=== PATIENT | male | born 1985 | race Two or more races ===

== ENCOUNTER 2017-07-05 00:53 | Emergency (ER) | payer SELFPAY ==
[2017-07-05 04:12] LABS: ABSOLUTE EOSINOPHILS # (AUTO) 0.1 10^3/uL (0.0-0.6); ABSOLUTE LYMPHOCYTES (AUTO) 1.6 10^3/uL (0.5-4.7); ABSOLUTE MONOCYTES (AUTO) 0.5 10^3/uL (0.1-1.4); ABSOLUTE NEUT (AUTO) 3.4 10^3/uL (1.7-8.2); BASOPHILS % (AUTO) 0.5 % (0-2); EOSINOPHILS % (AUTO) 0.9 % (0-6); HEMATOCRIT 42.4 % (37.9-51.0); LYMPHOCYTES % (AUTO) 29.1 % (13-45); MEAN CORPUSCULAR HEMOGLOBIN 29.9 pg (27.0-33.4); MEAN CORPUSCULAR HGB CONC 35.3 g/dL (32.0-36.0); MEAN CORPUSCULAR VOLUME 85 fl (80-97); MONOCYTES % (AUTO) 8.9 % (3-13); PLATELET COUNT 295 10^3/uL (150-450); RED CELL DISTRIBUTION WIDTH 12.9 % (11.5-14.0); SEGMENTED NEUTROPHILS % (AUTO) 60.6 % (42-78); TOTAL CELLS COUNTED % (AUTO) 100 %; WHITE BLOOD COUNT 5.7 10^3/uL (4.0-10.5)
[2017-07-05] MEDS ORDERED: NORMAL SALINE 1000 ML 1,000 ML IV ONE (04:15)
--- NOTE | 2017-07-05 04:16 | ER Document Report ---
ED General - General Chief Complaint: Chest Pain Stated Complaint: CHEST PAIN Time Seen by Provider: 07/05/17 04:04 - [facility] Notes: Patient is a 31-year-old male with no significant past medical history who presents to the ED with significant other complaining of left-sided chest pain that began today. Patient states that he also had an episode of nausea and vomiting. He states that he drank about 7-8 beers tonight. He was otherwise eating and drinking without difficulties. He has been urinating normally and having normal bowel movements. Denies any other recent illness. He denies any smoking or IV drug use. The pain is just does not radiate. Patient states that pushing on it makes the pain worse. He does not have any shortness of breath or dyspnea on exertion. He has not had any leg pains. Denies any prolonged immobilization, hormone use, previous DVT/PE, recent surgery/trauma. Denies any headache, fever, neck pain, URI, sore throat, palpitations, syncope, cough, shortness of breath, wheeze, dyspnea, abdominal pain, nausea/vomiting/ diarrhea, urinary retention, dysuria, hematuria, loss of control of bowel or bladder, numbness/tingling, saddle anesthesia, muscle paralysis/weakness, or rash. - Related Data Allergies/Adverse Reactions: No Known Drug Allergies Allergy (Verified 10/01/12 09:40) Past Medical History - Social History Smoking Status: Unknown if Ever Smoked Chew tobacco use (# tins/day): No Frequency of alcohol use: 8 drinks tonight Drug Abuse: None Family History: Reviewed & Not Pertinent Patient has suicidal ideation: No Patient has homicidal ideation: No - Past Medical History Cardiac Medical History: Denies: Hx Coronary Artery Disease, Hx Heart Attack, Hx Hypertension Pulmonary Medical History: Reports: Hx Asthma Denies: Hx Bronchitis, Hx COPD, Hx Pneumonia Neurological Medical History: Denies: Hx Cerebrovascular Accident, Hx Seizures Renal/ Medical History: Denies: Hx Peritoneal Dialysis GI Medical History: Reports: Hx Gastroesophageal Reflux Disease Musculoskeltal Medical History: Denies Hx Arthritis Psychiatric Medical History: Reports: Hx Attention Deficit Hyperactivity Disorder, Hx Bipolar Disorder Past Surgical History: Reports: Hx Orthopedic Surgery - knee - Immunizations Immunizations up to date: Yes Hx Diphtheria, Pertussis, Tetanus Vaccination: Yes Review of Systems - Review of Systems -: Yes All other systems reviewed and negative Physical Exam - Vital signs Vitals: Temp Pulse Resp BP Pulse Ox 98.2 F 96 12 122/68 97 07/05/17 01:47 07/05/17 01:47 07/05/17 01:47 07/05/17 01:47 07/05/17 01:47 - Notes Notes: PHYSICAL EXAMINATION: GENERAL: Well-appearing, well-nourished and in no acute distress. A&ox4. Answers questions appropriately. HEAD: Atraumatic, normocephalic. EYES: Pupils equal round and reactive to light, extraocular movements intact, sclera anicteric, conjunctiva are normal. ENT: Nares patent and without discharge. oropharynx clear without exudates. No tonsilar hypertrophy or erythema. Moist mucous membranes. NECK: Normal range of motion, supple without lymphadenopathy Chest: + moderate tenderness left sternal border which correlates with the pain described LUNGS: Breath sounds clear to auscultation bilaterally and equal. No wheezes rales or rhonchi. HEART: Regular rate and rhythm without murmurs, rubs, gallops. ABDOMEN: Soft, nontender, nondistended abdomen. No guarding, no rebound. No masses appreciated. Normal bowel sounds present. No CVA tenderness bilaterally. Musculoskeletal: FROM to passive/active. Strength 5+/5. Camilo neg b/l. Extremities: No cyanosis, clubbing, or edema b/l. Peripheral pulses 2+. Capillary refill less than 3 seconds. NEUROLOGICAL: Normal speech, normal gait. Normal sensory, motor exams PSYCH: Normal mood, normal affect. SKIN: Warm, Dry, normal turgor, no rashes or lesions noted. Course - Re-evaluation Re-evalutation: 07/05/17 06:38 Patient is an afebrile, well-hydrated, 31-year-old male who presents to the ED with chest wall pain. Vitals are acceptable. PE is otherwise unremarkable aside from the very reproducible chest wall tenderness/pain. Patient has no significant tachycardia, tachypnea, or hypoxia. He is nontoxic-appearing and is tolerating p.o. without any difficulties. CBC, CMP, cardiac enzymes 2/EKG are unremarkable for any acute pathology. Chest x-ray was unremarkable for any acute pathology. Currently his vitals are heart rate of 79, blood pressure 107/ 54, and oxygen saturation 96% on room air. No other labs or imaging warranted at this time based on H&P. PERC 0. Wells 0. Heart score of 0. Patient's work up today including vitals and PE do not favor ACS, PE, pneumothorax, pericarditis, dissection, respiratory compromise, severe dehydration, sepsis, meningitis, or other systemic emergent condition at this time. Patient is aware that his condition can change from initial presentation and he needs to monitor symptoms closely and seek medical attention for any acute changes. Recommend conservative measures for symptoms. Recheck with your PCM in 3-5 days. Return to the ED with any worsening/concerning symptoms otherwise as reviewed in discharge. Patient is in agreement. - Vital Signs Vital signs: Temp Pulse Resp BP Pulse Ox 98.2 F 96 14 111/67 97 07/05/17 01:47 07/05/17 01:47 07/05/17 05:01 07/05/17 05:01 07/05/17 05:01 - Laboratory Result Diagrams: 07/05/17 02:45 07/05/17 02:45 Discharge - Discharge Clinical Impression: Chest wall pain Condition: Stable Disposition: HOME, SELF-CARE Instructions: Chest Wall Pain ([facility]) Additional Instructions: Rest, Ice, Compression, Elevation Tylenol/ibuprofen as needed Light stretches daily Strength exercises as able Moist heat and massage may help F/u with your PCP in 3-5 days for a recheck Consider consult(s) with cardiology for ongoing/worsening symptoms Return to the ED with any worsening symptoms and/or development of fever, headache, chest pain, palpitations, syncope, shortness of breath, trouble breathing, abdominal pain, n/v/d, muscle weakness/paralysis, numbness/tingling, swelling, redness, or other worsening symptoms that are concerning to you. Referrals: CHERISE RICHMOND MD [ACTIVE STAFF] - Follow up as needed
[2017-07-05 04:20] LABS: ALANINE AMINOTRANSFERASE 41 U/L (21-72); ALBUMIN 4.4 g/dL (3.5-5.0); ALKALINE PHOSPHATASE 69 U/L (38-126); ANION GAP 15 (5-19); ASPARTATE AMINO TRANSFERASE 22 U/L (17-59); BILIRUBIN,DIRECT 0.4 mg/dL (0.0-0.4); BILIRUBIN,TOTAL 0.8 mg/dL (0.2-1.3); BLOOD UREA NITROGEN 13 mg/dL (7-20); CALCIUM 9.3 mg/dL (8.4-10.2); CARBON DIOXIDE 24 mmol/L (22-30); CHLORIDE 105 mmol/L (98-107); GLUCOSE 108 mg/dL (75-110); SODIUM 144.3 mmol/L (137-145); TOTAL PROTEIN 7.5 g/dL (6.3-8.2)
--- NOTE | 2017-07-05 04:46 | RADIOLOGY REPORT (SQ) ---
EXAM DESCRIPTION: Single view of the chest CLINICAL HISTORY: chest pain COMPARISON: 08/07/2012 FINDINGS: Single frontal view of the chest. The cardiomediastinal silhouette has normal size and contour. No consolidation, pneumothorax, or pleural effusion. No displaced rib fractures identified. Leads overlie the chest. Upper abdominal soft tissues are unremarkable. IMPRESSION: 1. No acute pulmonary process identified.
[2017-07-05] MEDS ORDERED: LIDOCAINE 5% (700 MG) TRANSDERMAL ADH..PATCH TP ONE (06:44)
[2017-07-05] MEDS ORDERED: KETOROLAC TROMETHAMINE INJ/PF 30 MG/1 ML SDV IV ONE (06:44)
[2017-07-05 07:06] VITALS: BP 112/71
--- NOTE | 2017-07-05 08:18 | EKG REPORT ---
SEVERITY:- NORMAL ECG - SINUS RHYTHM : Confirmed by: Annetta Hernandez 05-Jul-2017 05:18:22
== END 2017-07-05 07:43 | disposition home or self-care (01) ==
LOC: ER 00:53
DX: R11.2 Nausea with vomiting, unspecified (principal); R07.89 Other chest pain
CPT/HCPCS: 93005; 99285; 96361; 96374; 36415; 85025; 80053; 84484; 71045; 93010; J1885; J7030

== ENCOUNTER 2017-12-15 20:51 | Emergency (ER) | payer SELFPAY ==
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
[2017-12-15] MEDS ORDERED: DIPH/PERTUSS(ACELL)/TETANUS VAC/PF 0.5 ML SYR (>=10YO) IM ONE (22:14)
[2017-12-15 23:27] VITALS: BP 118/78
== END 2017-12-15 23:27 | disposition home or self-care (01) ==
LOC: ER 20:51
DX: S06.0X0A Concussion without loss of consciousness, initial encounter (principal); S01.21XA Laceration without foreign body of nose, initial encounter; R68.84 Jaw pain; R51 Headache; Y04.2XXA Assault by strike against or bumped into by another person, initial encounter; R11.10 Vomiting, unspecified; F31.9 Bipolar disorder, unspecified; Z79.899 Other long term (current) drug therapy; J45.909 Unspecified asthma, uncomplicated
CPT/HCPCS: 70450; 70486; 90471; 90715; 99284

== ENCOUNTER 2017-12-17 00:41 | Emergency (ER) | payer SELFPAY ==
[2017-12-17 00:50] VITALS: BP 146/86
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
== END 2017-12-17 02:45 | disposition home or self-care (01) ==
LOC: ER 00:41
DX: M79.641 Pain in right hand (principal); R20.0 Anesthesia of skin; M79.89 Other specified soft tissue disorders; R51 Headache; R68.84 Jaw pain; Y09 Assault by unspecified means; J45.909 Unspecified asthma, uncomplicated
CPT/HCPCS: 99283; 73130; L3908